=== PATIENT | female | born 1980 | race Caucasian/White ===

== ENCOUNTER 2018-07-26 18:01 | Emergency (ER) | payer MEDICARE ==
[~2018-07-26] VITALS: Ht 170.2 cm; Wt 54.5 kg
[2018-07-26 18:04] VITALS: BP 121/72
== END 2018-07-26 18:54 | disposition home or self-care (01) ==
LOC: ER 18:02
DX: M25.562 Pain in left knee (principal); Z88.1 Allergy status to other antibiotic agents
CPT/HCPCS: 73564; 99284

== ENCOUNTER 2019-06-25 13:16 | Emergency (ER) | payer MEDICARE, OTHER ==
[~2019-06-25] VITALS: Ht 170.2 cm; Wt 54.5 kg
[2019-06-25 13:19] VITALS: BP 110/75
[2019-06-25] MEDS ORDERED: TETanus/Pertussis (Acell)/Diphther VAC/PF (Tdap-Adult) 0.5ml syringe IM ONE (13:50)
[2019-06-25] MEDS ORDERED: CLIN-96 PO (14:01)
[2019-06-25 15:04] LABS: HIV ANTIBODY 1&2 RAPID NON-REACTIVE (Neg)
[2019-06-27 11:16] LABS: HEP B CORE AB, IGM Negative (Negative); HEP B CORE AB, TOT Negative (Negative); HEPATITIS C ANTIBODY 0.2 s/co ratio (0.0-0.9)
== END 2019-06-25 14:29 | disposition home or self-care (01) ==
LOC: ER 13:17
DX: S61.452A Open bite of left hand, initial encounter (principal); S60.221A Contusion of right hand, initial encounter; Z88.1 Allergy status to other antibiotic agents; Y04.1XXA Assault by human bite, initial encounter; Y93.89 Activity, other specified; Y92.89 Other specified places as the place of occurrence of the external cause; Y99.9 Unspecified external cause status
CPT/HCPCS: 36415; 86703; 86704; 86705; 86706; 86803; 90471; 99283

== ENCOUNTER 2020-10-31 11:31 | Emergency (ER) | payer BC, OTHER ==
[~2020-10-31] VITALS: Ht 170.2 cm; Wt 56.4 kg
[~2020-10-31 11:31] MED LIST: CLIN-97 PO
[2020-10-31] MEDS ORDERED: methylPREDNISolone sod succ 125mg/2ml vial IV ONE (11:55)
[2020-10-31] MEDS ORDERED: normal saline 1000ML IV soln IVB ONE (11:55)
[2020-10-31] MEDS ORDERED: diphenhydrAMINE 50 mg/ml inj IV ONE (12:00)
--- NOTE | 2020-10-31 13:22 | NUR ---
PT STATES, IM FEELING MUCH BETTER, MY SKIN IS NOT BURNING ANYMORE.
[2020-10-31 13:49] VITALS: BP 94/52
--- NOTE | 2020-10-31 13:51 | NUR ---
PT AMB TO BR, VOIDED X1. TOLERATED WELL. PT STATES, MY BP ALWAYS RUNS LOW, THATS MY NORM
== END 2020-10-31 14:48 | disposition home or self-care (01) ==
LOC: ER 11:31
DX: T88.1XXA Other complications following immunization, not elsewhere classified, initial encounter (principal); Z79.2 Long term (current) use of antibiotics; Z79.899 Other long term (current) drug therapy; Z87.440 Personal history of urinary (tract) infections; Z88.1 Allergy status to other antibiotic agents; Z88.8 Allergy status to other drugs, medicaments and biological substances
CPT/HCPCS: 96361; 96374; 96375; 99284; J1200; J2930; J7030